=== PATIENT | female | born 1955 | race Hispanic/Latino ===

== ENCOUNTER 2020-10-13 09:39 | Emergency (ER) | payer MEDICARE ==
[2020-10-13] MEDS ORDERED: KETOROLAC TROMETHAMINE 60 MG/2 ML VIAL ONE (09:52)
== END 2020-10-13 10:33 | disposition home or self-care (01) ==
LOC: EDH 09:39
DX: S86.911A Strain of unspecified muscle(s) and tendon(s) at lower leg level, right leg, initial encounter (principal); X58.XXXA Exposure to other specified factors, initial encounter; Y93.89 Activity, other specified; Y92.89 Other specified places as the place of occurrence of the external cause; Y99.8 Other external cause status
CPT/HCPCS: 73562; 96372; 99283; J1885

== ENCOUNTER 2020-11-04 11:25 | Emergency (ER) | payer MEDICARE ==
[2020-11-04] MEDS ORDERED: DEXAMETHASONE SOD PHOSPHATE 10MG/ML 1ML VIAL ONE (12:48)
[2020-11-04] MEDS ORDERED: KETOROLAC TROMETHAMINE 30MG/ML ONE (12:49)
[2020-11-04] MEDS ORDERED: ORPHENADRINE CITRATE 30 MG/ML ML ONE (12:49)
[2020-11-04] MEDS ORDERED: IBUPROFEN 600 MG TABLET ONE (12:55)
[2020-11-04] MEDS ORDERED: CYCLOBENZAPRINE HCL 10 MG TABLET ONE (12:55)
== END 2020-11-04 13:39 | disposition home or self-care (01) ==
LOC: EDH 11:25
DX: S80.01XA Contusion of right knee, initial encounter (principal); W18.39XA Other fall on same level, initial encounter; Y93.89 Activity, other specified; Y92.89 Other specified places as the place of occurrence of the external cause; Y99.8 Other external cause status
CPT/HCPCS: 73562; 96372 ×3; 99284; J1100; J1885; J2360

== ENCOUNTER 2022-07-28 11:40 | Emergency (ER) | payer MEDICARE, OTHER ==
[~2022-07-28] VITALS: Ht 149.9 cm; Wt 82.1 kg
[2022-07-28 11:41] VITALS: BP 143/67
== END 2022-07-28 13:04 | disposition home or self-care (01) ==
LOC: EDH 11:40
DX: B34.9 Viral infection, unspecified (principal); Z20.822 Contact with and (suspected) exposure to COVID-19
CPT/HCPCS: 99284; 71045; 87635; 87880; 87804 ×2; C9803

== ENCOUNTER 2023-02-05 18:15 | Emergency (ER) | payer OTHER ==
[~2023-02-05] VITALS: Ht 154.9 cm; Wt 81.6 kg
[2023-02-05 18:30] VITALS: BP 133/79
[2023-02-05 18:54] LABS: BASOPHILS % (AUTO) 0.2 % (0.0-5.0); EOSINOPHILS % (AUTO) 0.2 % (0.0-8.0); HEMATOCRIT 43.4 % (36-48); MEAN CORPUSCULAR HEMOGLOBIN 29.4 pg (27.0-33.0); MEAN CORPUSCULAR HGB CONC 32.9 g/dL (32.0-36.0); MEAN CORPUSCULAR VOLUME 89.1 fL (79-99); NEUTROPHILS % (AUTO) 89.2 % (40.0-77.0); PLATELET COUNT (AUTO) 277 K/uL (130-400); RED BLOOD CELL COUNT(AUTO) 4.87 MIL/uL (4.00-5.50); RED CELL DISTRIBUTION WIDTH 13.2 % (11.0-15.5); WHITE BLOOD COUNT (AUTO) 9.7 K/uL (4.8-10.8)
[2023-02-05 19:06] LABS: CREATININE 0.6 mg/dL (0.5-1.5)
[2023-02-05 19:10] LABS: ALBUMIN 3.6 g/dL (3.5-5.0); TOTAL PROTEIN, SERUM 7.5 g/dL (6.0-8.3)
== END 2023-02-05 22:17 | disposition left against medical advice (07) ==
LOC: EDH 18:15
DX: R11.2 Nausea with vomiting, unspecified (principal); R19.7 Diarrhea, unspecified
CPT/HCPCS: 36415; 80053; 83690; 85025

== ENCOUNTER 2023-04-03 19:21 | Emergency (ER) | payer OTHER ==
[~2023-04-03] VITALS: Ht 157.5 cm; Wt 84.8 kg
[2023-04-03] MEDS ORDERED: 0.9%NACL 1000ML 1,000 ML IV ONE (21:30)
[2023-04-03] MEDS ORDERED: KETOROLAC 15MG/ML VIAL (15MG/ML) IV ONE (21:30)
[2023-04-03 22:07] LABS: BASOPHILS % (AUTO) 0.5 % (0.0-5.0); EOSINOPHILS % (AUTO) 1.1 % (0.0-8.0); HEMATOCRIT 44.1 % (36-48); LYMPHOCYTES % (AUTO) 31.4 % (21.0-51.0); MEAN CORPUSCULAR HEMOGLOBIN 29.3 pg (27.0-33.0); MEAN CORPUSCULAR HGB CONC 32.4 g/dL (32.0-36.0); MEAN CORPUSCULAR VOLUME 90.4 fL (79-99); MONOCYTES % (AUTO) 6.9 % (3.0-13.0); NEUTROPHILS % (AUTO) 59.8 % (40.0-77.0); PLATELET COUNT (AUTO) 302 K/uL (130-400); RED BLOOD CELL COUNT(AUTO) 4.88 MIL/uL (4.00-5.50); RED CELL DISTRIBUTION WIDTH 13.5 % (11.0-15.5); WHITE BLOOD COUNT (AUTO) 8.8 K/uL (4.8-10.8)
[2023-04-03 23:09] LABS: APPEARANCE,URINE CLEAR (CLEAR); BILIRUBIN,URINE NEGATIVE (NEGATIVE); COLOR,URINE LIGHT-YELLOW (YELLOW); GLUCOSE, URINE (UA) NEGATIVE (NEGATIVE); KETONES,URINE NEGATIVE (NEGATIVE); LEUKOCYTE ESTERASE ,URINE 25 Leu/uL (NEGATIVE); NITRATE,URINE NEGATIVE (NEGATIVE); OCCULT BLOOD,URINE NEGATIVE (NEGATIVE); PH,URINE 5.5 (5.0-8.0); PROTEIN,URINE NEGATIVE (NEGATIVE); UROBILINOGEN,URINE 0.2 mg/dL (0.2-1.0)
[2023-04-03 23:12] LABS: MUCUS,URINE RARE LPF (None Seen); SQUAMOUS EPITHELIAL CELL,UR RARE /HPF (0-2)
[2023-04-03 23:16] LABS: CREATININE 0.6 mg/dL (0.5-1.5); POTASSIUM 3.8 mmol/L (3.5-5.1)
[2023-04-03 23:22] LABS: ALBUMIN 3.6 g/dL (3.5-5.0); TOTAL PROTEIN, SERUM 7.3 g/dL (6.0-8.3)
[2023-04-03] MEDS ORDERED: IOHEXOL 350 MG/ML 100ML INFUS..BTL IV ONE (23:23)
[2023-04-04] MEDS ORDERED: POLY17PO4 PO (00:33)
[2023-04-04 00:39] VITALS: BP 128/64
== END 2023-04-04 00:45 | disposition home or self-care (01) ==
LOC: EDH 19:21
DX: K59.00 Constipation, unspecified (principal); M54.50 Low back pain, unspecified
CPT/HCPCS: 99285; 74177; 96374; 96361; 80053; 83690; 85025; 87077; 87088; 87186; 83605; 81001; 36415; J7030; J1885; Q9967

== ENCOUNTER 2023-06-16 12:56 | Emergency (ER) | payer OTHER ==
[~2023-06-16] VITALS: Ht 154.9 cm; Wt 81.6 kg
[~2023-06-16 12:56] MED LIST: POLY17PO4 PO
[2023-06-16 16:05] LABS: SARS-CoV-2, RNA, NAAT POSITIVE SARS CoV-2 (NEGATIVE)
[2023-06-16 16:16] LABS: INFLUENZA TYPE A Negative For Type A (NEGATIVE); INFLUENZA TYPE B Negative For Type B (NEGATIVE)
[2023-06-16 16:20] LABS: RAPID GROUP A STREP NEGATIVE (NEGATIVE)
[2023-06-16] MEDS ORDERED: GUAIFENESIN 600 MG TABLET.ER PO ONE ×2 (17:30→17:36)
[2023-06-16] MEDS ORDERED: KETOROLAC 60 MG VIAL (30MG/ML) IM ONE (17:30)
[2023-06-16] MEDS ORDERED: NIRM1TAB5 PO (17:33)
[2023-06-16] MEDS ORDERED: GUAI600T50 PO (17:33)
[2023-06-16] MEDS ORDERED: KETOROLAC 30MG VIAL (30MG/ML) ONE (17:35)
[2023-06-16 17:39] VITALS: BP 166/75; PULSE 69; RESP 16; O2SAT 100
== END 2023-06-16 17:59 | disposition home or self-care (01) ==
LOC: EDH 12:56
DX: U07.1 COVID-19 (principal); B34.9 Viral infection, unspecified; J02.9 Acute pharyngitis, unspecified
CPT/HCPCS: 99284; 71045; 87635; 87880; 87804 ×2; 96372; C9803; J1885

== ENCOUNTER 2025-06-04 17:10 | Emergency (ER) | payer OTHER ==
[~2025-06-04] VITALS: Ht 154.9 cm; Wt 88.5 kg
[~2025-06-04 17:10] MED LIST changes: +GUAI600T50 PO; +NIRM1TAB5 PO
[2025-06-04] MEDS ORDERED: AMOX1TAB16 PO (17:42)
--- NOTE | 2025-06-04 17:43 | ERN ---
ED Note History of Present Illness Stated Complaint: EAR ACHE Chief Complaint: Earache Time Seen by MD: 17:11 Time Seen by Midlevel: 17:11 Dictation: The patient is a 70-year-old female with no past medical history who presents to the emergency department with complaints of right ear pain onset2 hours prior to arrival. Patient denies any trauma. Reports she had some swelling behind her ear but it has gone down. Patient denies any fevers. Allergies: Coded Allergies: No Known Allergies (Unverified Allergy, Unknown, 07/28/22) Home Meds Active Scripts Nirmatrelvir/Ritonavir (Paxlovid 150-100 mg Pack (Eua)) 1 Each Tablet, 1 EACH PO BID for 5 Days, #10 TAB 0 Refills Prov:BJ RAMSEY CUSTOMER CARE VOICE CONSULTANT 06/16/23 Guaifenesin (Mucinex) 600 Mg Tablet.er, 600 MG PO BID for 7 Days, #14 TAB 0 Refills Prov:BJ RAMSEY NP 06/16/23 Polyethylene Glycol 3350 (Miralax) 17 Gm Powd.pack, 17 GM PO DAILY for constipation for 30 Days, #1 BOX Prov:ANNE MARIE MEDINA CUSTOMER CARE VOICE CONSULTANT 04/04/23 Past Medical History Past Medical History: No Pertinent History Surgical History: None Social History: Smokers, Lives with family History: Not Applicable RN Note Reviewed/Agreed w/PFSH: Yes Review of System Dictation Constitutional: Negative for fever,chills, and weight loss Eyes: Negative for injury, pain,redness, and discharge ENT: Positive for right ear pain Cardiovascular: Negative for chest pain, palpitations, and edema Respiratory: Negative for shortness of breath, cough, and wheezing, Abdomen/GI: Negative for abdominal pain, nausea, vomiting, diarrhea, and constipation Back: Negative for injury and pain : Negative for injury, bleeding and discharge MS/Extremity: Negative for injury and deformity Skin: Negative for rash, and discoloration Neuro: Negative for headache, weakness, numbness, tingling, and seizure Psych: Negative for suicide ideation, homicidal ideation, and hallucinations Initial Vital Sign VS Vital Signs Date Time Temp Pulse Resp B/P (MAP) Pulse Ox O2 Delivery O2 Flow Rate FiO2 06/04/25 17:11 97.5 64 19 141/79 99 Room Air 0 Physical Exam Dictation Vital Signs reviewed General Appearance: Alert, oriented x 3, no acute distress, well developed, nourished. Head and Face: non-traumatic. Eyes: PERRL, pink conjunctivas, eyelid no trauma, anterior chamber with arcus senilis. Ears: Pinnas intact and no signs of trauma or erythema ear canals clear and no discharge, right TM positive erythema Nose: No discharge, no bleeding. Oropharynx: Mouth normal, tongue pink. pharynx clear,no erythema, tonsils no exudates, no abscesses noted, mucous membrane moist Neck: Supple, non-tender, no thyromegaly, no masses, no JVD, no bruits Breast:Deferred Chest:No tenderness, no crepitus, no paradoxical movement, no retractions Lungs:Clear, well-ventilated, symmetric, no rales, no wheezing, no rhonchi, no stridor, good breath sounds bilaterally Heart: Regular rate, regular rhythm, no murmur, no gallops Vascular: no peripheral edema, Abdomen: Soft, positive bowel sounds, nondistended, no guarding, nontender, no rebound, no masses no hepatomegaly, no splenomegaly, no Alexandra's sign, no hernias. Rectal: Deferred Genital: Deferred Neurological: Normal speech, motor function intact, sensory function intact Musculoskeletal: Neck nontender, full range of motion, back nontender, full range of motion, Extremities: nontender, full range of motion Skin: Color pink, dry, no turgor, no rash, no lacerations, no abrasions, no contusions. Lymphatic: Deferred Results (Laboratory/Radiology) Labs Reviewed?: Yes ED Course ED Course Orders Procedure Category Date Status Time Ketorolac 60mg/2ml PHA 06/04/25 Logged (Toradol 60mg/2ml) 18:00 Current Medications Medications (Trade) Dose Ordered Sig/Prince Route PRN Reason Start Time Stop Time Status Last Admin Dose Admin Ketorolac Tromethamine (toRADol 60MG/ 2ML) 30 mg ONCE ONCE IM 06/04/25 18:00 06/04/25 18:01 UNV Vital Signs Date Time Temp Pulse Resp B/P (MAP) Pulse Ox O2 Delivery O2 Flow Rate FiO2 06/04/25 17:11 97.5 64 19 141/79 99 Room Air 0 Medical Decision Making MDM The patient is a 70-year-old female with no past medical history who presents to the emergency department with complaints of right ear pain onset2 hours prior to arrival. Patient denies any trauma. Denies any cough or runny nose. Reports she had some swelling behind her ear but it has gone down. Patient denies any fevers. Patient with a erythemic tympanic membrane. He will treat patient with the antibiotics. On physical exam patient is in no acute distress stable vital signs. Differential diagnosis: Otitis media, otitis externa, URI Need for hospitalization: Patient does not meet criteria for hospitalization. There are no social concerns with this patient. DX & DISP Disposition: Discharge Departure Impression: Primary Impression: Right otitis media Condition: Stable Scripts Amoxicillin/Potassium Clav (Amox Tr-K Clv 875-125 mg Tab) 875 Mg-125 Mg Tablet 1 EACH PO BID for 5 Days, #10 TAB 0 Refills Prov: QUETA MEYERS 06/04/25 Additional Instructions: Please take your medications as prescribed. Follow up with the primary doctor in 1-2 days. If anything worsens please return to ER. FOLLOW-UP WITH PRIMARY CARE PROVIDER IN 1 TO 2 DAYS. TAKE MEDICATIONS DIRECTED HERE IN THE EMERGENCY ROOM. OKAY TO CONTINUE HOME MEDICATIONS UNLESS OTHERWISE DISCUSSED DURING YOUR VISIT IN THE EMERGENCY ROOM TODAY. RETURN TO YOUR NEAREST EMERGENCY ROOM IF SYMPTOMS WORSEN OR IF THERE IS NO IMPROVEMENT. CALL 911 IF YOU NEED IMMEDIATE ASSISTANCE. TAKE TYLENOL [id number] NEEDED AND IF NO CONTRAINDICATIONS ARE PRESENT. INCREASE ORAL HYDRATION. A WOUND CULTURE OR URINE CULTURE WAS ORDERED HERE IN THE EMERGENCY ROOM DEPARTMENT PLEASE FOLLOW-UP WITH PRIMARY CARE PROVIDER AND ADVISE THEM TO GET REPEAT PORTS FROM OUR FACILITY. IF YOU HAD ANY ANNABELLE WRAP/SPLINTS THAT WERE APPLIED HERE, PLEASE DO NOT REMOVE THEM UNTIL YOU SEE YOUR PRIMARY CARE OR SPECIALTY. Referrals: RITCHIE BELTRAN M.D. (PCP) Time of Disposition: 17:41 I have reviewed the case, and I agree with, Diagnosis and Plan QUETA MEYRES Jun 04, 2025 17:43
[2025-06-04 17:48] VITALS: BP 141/79; PULSE 71; RESP 18; TEMP 97.7; O2SAT 99
== END 2025-06-04 18:00 | disposition home or self-care (01) ==
LOC: EDH 17:10
DX: H66.91 Otitis media, unspecified, right ear (principal); F17.200 Nicotine dependence, unspecified, uncomplicated; Z79.899 Other long term (current) drug therapy
CPT/HCPCS: 99283; 96372; J1885

== ENCOUNTER 2025-10-10 11:28 | Emergency (ER) | payer OTHER ==
[~2025-10-10] VITALS: Ht 154.9 cm; Wt 93.0 kg
[~2025-10-10 11:28] MED LIST changes: +AMOX1TAB16 PO
[2025-10-10 12:09] LABS: SARS-CoV-2, RNA, NAAT NEGATIVE SARS CoV-2 (NEGATIVE)
[2025-10-10 12:15] LABS: INFLUENZA TYPE A Negative For Type A (NEGATIVE); INFLUENZA TYPE B Negative For Type B (NEGATIVE)
[2025-10-10 12:18] LABS: RAPID GROUP A STREP positive (NEGATIVE)
--- NOTE | 2025-10-10 12:35 | EKG ---
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
[2025-10-10 12:36] LABS: IMMATURE GRANULOCYTE ABSOLUTE 0.04 K/uL (0-1); NUCLEATED RED BLOOD CELLS 0.0 % (0.0-0.19); PLATELET COUNT (AUTO) 259 K/uL (130-400); RED BLOOD CELL COUNT(AUTO) 4.81 MIL/uL (4.00-5.50); RED CELL DISTRIBUTION WIDTH 13.2 % (11.0-15.5); WHITE BLOOD COUNT (AUTO) 12.5 K/uL (4.8-10.8)
[2025-10-10 12:44] LABS: CREATININE 0.7 mg/dL (0.5-1.0); GLOMERULAR FILTR. RATE CALC 92.0 mL/min (>90); GLUCOSE,RANDOM 108.0 mg/dL (70-105); SODIUM SERUM 138.0 mmol/L (136-145); UREA NITROGEN, BLOOD 18.0 mg/dL (7-18)
[2025-10-10] MEDS ORDERED: AZIT250T9 PO (13:13)
[2025-10-10] MEDS ORDERED: PRED20TA3 PO (13:13)
--- NOTE | 2025-10-10 13:14 | ERN ---
ED Note History of Present Illness Stated Complaint: FLU SYMPTOMS Chief Complaint: Flu Symptoms Time Seen by MD: 11:32 Dictation: 70-year-old female presenting to the emergency department with sore throat cough cold congestion over the past few days, no significant past medical history. Patient denies any shortness of breath or chest pain Allergies: Coded Allergies: No Known Allergies (Unverified Allergy, Unknown, 07/28/22) Home Meds Active Scripts Amoxicillin/Potassium Clav (Amox Tr-K Clv 875-125 mg Tab) 875 Mg-125 Mg Tablet, 1 EACH PO BID for 5 Days, #10 TAB 0 Refills Prov:[facility] 06/04/25 Nirmatrelvir/Ritonavir (Paxlovid 150-100 mg Pack (Eua)) 1 Each Tablet, 1 EACH PO BID for 5 Days, #10 TAB 0 Refills Prov:BJ RAMSEY [facility] 06/16/23 Guaifenesin (Mucinex) 600 Mg Tablet.er, 600 MG PO BID for 7 Days, #14 TAB 0 Refills Prov:BJ RAMSEY [facility] 06/16/23 Polyethylene Glycol 3350 (Miralax) 17 Gm Powd.pack, 17 GM PO DAILY for constipation for 30 Days, #1 BOX Prov:ANNE MARIE MEDINA [employer] BACK TENDER 04/04/23 Past Medical History Past Medical History: No Pertinent History Surgical History: None Social History: Smokers, Lives with family History: Not Applicable Review of System Dictation Constitutional: Negative for fever,chills, and weight loss Eyes: Negative for injury, pain,redness, and discharge ENT: Per HPI Cardiovascular: Negative for chest pain, palpitations, and edema Respiratory: Negative for shortness of breath, positive for cough Abdomen/GI: Negative for abdominal pain, nausea, vomiting, diarrhea, and constipation Back: Negative for injury and pain : Negative for injury, bleeding and discharge MS/Extremity: Negative for injury and deformity Skin: Negative for rash, and discoloration Neuro: Negative for headache, weakness, numbness, tingling, and seizure Psych: Negative for suicide ideation, homicidal ideation, and hallucinations Initial Vital Sign VS Vital Signs Date Time Temp Pulse Resp B/P (MAP) Pulse Ox O2 Delivery O2 Flow Rate FiO2 10/10/25 11:29 97.9 98 18 146/84 97 Room Air Physical Exam Dictation General: awake, alert, NAD Head/Face: Normocephalic, atraumatic Eyes: PERRL, EOMI, vision at baseline ENT: oral cavity clear, TMs clear, no signs of infection Neck: Trachea midline, supple, no nuchal rigidity Cardiovascular: RRR, normal S1/S2, No MRGs, no JVD Respiratory: CTAB, no respiratory distress, No rales or wheezes Abdomen: Soft, non-tender, non-distended, normal bowel sounds, no guarding or rebound. Skin: Warm, dry, normal turgor, no rash MS/Extremity: Pulses equal, no cyanosis, neurovascular intact, FROM Neuro: COAx4, GCS 15, strength 5/5, CN 2-12 intact, normal cerebellar exam, normal gait, Psych: Normal behavior, mood, and affect normal Results (Laboratory/Radiology) Laboratory/Radiology Laboratory Tests Test 10/10/25 11:30 10/10/25 12:20 Influenza Type A Antigen Negative For Type A Influenza Type B Antigen Negative For Type B SARS-CoV-2, RNA, NAAT NEGATIVE SARS CoV-2 Group A Streptococcus Rapid positive (NEGATIVE) *A White Blood Count 12.5 K/uL (4.8-10.8) H Red Blood Count 4.81 MIL/uL (4.00-5.50) Hemoglobin 14.1 g/dL (12.0-16.0) Hematocrit 44.0 % (36-48) Mean Corpuscular Volume 91.5 fL (79-99) Mean Corpuscular Hemoglobin 29.3 pg (27.0-33.0) Mean Corpuscular Hemoglobin Concent 32.0 g/dL (32.0-36.0) Red Cell Distribution Width 13.2 % (11.0-15.5) Platelet Count 259 K/uL (130-400) Mean Platelet Volume 9.6 fL (7.5-10.5) Immature Granulocyte % (Auto) 0.3 % (0-1) Neutrophils (%) (Auto) 84.5 % (40.0-77.0) H Lymphocytes (%) (Auto) 8.1 % (21.0-51.0) L Monocytes (%) (Auto) 5.5 % (3.0-13.0) Eosinophils (%) (Auto) 1.3 % (0.0-8.0) Basophils (%) (Auto) 0.3 % (0.0-5.0) Neutrophils # (Auto) 10.6 K/uL (1.8-7.7) H Lymphocytes # (Auto) 1.0 K/uL (1.0-4.8) Monocytes # (Auto) 0.7 K/uL (0.1-1.0) Eosinophils # (Auto) 0.16 K/uL (0.00-0.70) Basophils # (Auto) 0.04 K/uL (0.00-0.20) Absolute Immature Granulocyte (auto 0.04 K/uL (0-1) Nucleated Red Blood Cells 0.0 % (0.0-0.19) White Cell Morphology Comment See comments Sodium Level 138 mmol/L (136-145) Potassium Level 4.5 mmol/L (3.5-5.1) Chloride Level 106 mmol/L (101-111) Carbon Dioxide Level 29 mmol/L (21-32) Blood Urea Nitrogen 18 mg/dL (7-18) Creatinine 0.7 mg/dL (0.5-1.0) Glomerular Filtration Rate Calc 92 mL/min (>90) Random Glucose 108 mg/dL (70-105) H Total Calcium 8.6 mg/dL (8.5-10.1) Troponin I High Sensitivity 5 ng/L (4-50) Labs Reviewed?: Yes EKG: (+) NSR, (+) rhythm, (+) nonspecific ST T wave chg, (+) unchanged X-RAY Comment: No acute infiltrates noted ED Course ED Course Orders Procedure Category Date Status Time Influenza Type A & B, LAB 10/10/25 Complete Rapid 11:34 Covid Rna Naat LAB 10/10/25 Complete 11:34 Rapid (Group A Strep) LAB 10/10/25 Complete 11:34 Basic Metabolic Panel LAB 10/10/25 Complete 12:03 Cbc With Differential LAB 10/10/25 Complete 12:03 12 Lead Ekg Tracing- EKG 10/10/25 Complete Technical 12:03 Troponin I High LAB 10/10/25 Complete Sensitivity 12:03 Chest 1vw RAD 10/10/25 Taken 12:03 Ceftriaxone 1g Vial PHA 10/10/25 Complete (Rocephine 1g Inj) 12:24 Current Medications Medications (Trade) Dose Ordered Sig/Prince Route PRN Reason Start Time Stop Time Status Last Admin Dose Admin Ceftriaxone Sodium (ROCEphine 1G INJ) 1 gm ONCE STAT IM 10/10/25 12:24 10/10/25 12:25 DC Vital Signs Date Time Temp Pulse Resp B/P (MAP) Pulse Ox O2 Delivery O2 Flow Rate FiO2 10/10/25 11:29 97.9 98 18 146/84 97 Room Air Medical Decision Making MDM MDM: Differential diagnosis: Rationale: Tests considered and ordered secondary to shared decision making include: Previous outside records reviewed: Old ER visits. Risk of complication and/or morbidity or mortality of patient management: None Medications-Per medication reconciliation Need for hospitalization: Patient does not meet criteria for hospitalization. Need for emergency major/minor surgery: No There are no social concerns with this patient. Prescription drug management Prescriptions will include symptomatic care Patient's prior external medical records from other ER visits were reviewed by me as indicated. Prior testing and results from previous visits were reviewed. Prior tests were taken into account with medical decision making and resource utilization, independent historian/historians were used to obtain complete medical history. I independently interpreted the test that were performed, results were reviewed by me and considered findings on radiology if ordered. Medical management and examination interpretation discussions were had by me with other qualified healthcare professionals as indicated for the patient's care. 70-year-old female with strep throat, stable exam nontoxic afebrile, clear chest x-ray labs stable, given Rocephin IM and stable for discharge prescriptions given. No respiratory distress. DX & DISP Disposition: Discharge Departure Impression: Primary Impression: Acute pharyngitis Condition: Stable Scripts Prednisone (Prednisone) 20 Mg Tablet 20 MG PO DAILY for 5 Days, #5 TAB Prov: KELLY RODRÍGUEZ MD 10/10/25 Azithromycin (Azithromycin) 250 Mg Tablet 250 MG PO AD for cough for 5 Days, #6 TAB Prov: KELLY RODRÍGUEZ MD 10/10/25 Referrals: RITCHIE BELTRAN M.D. (PCP) KELLY RODRÍGUEZ MD Oct 10, 2025 13:14
[2025-10-10 13:53] VITALS: BP 140/94; PULSE 94; RESP 20; TEMP 99; O2SAT 98
--- NOTE | 2025-10-10 13:58 | HMCIMG ---
EXAM: CR Chest, 1 View. CLINICAL HISTORY: cough COMPARISON: None provided. FINDINGS: LUNGS: The lungs show no infiltrate or other acute finding. PLEURAL SPACES: No pleural effusion or pneumothorax. MEDIASTINUM: The cardiomediastinal silhouette is within normal limits. BONES: No aggressive appearing osseous lesion seen. IMPRESSION: No acute cardiopulmonary pathology is evident. /[place]
== END 2025-10-10 14:03 | disposition home or self-care (01) ==
LOC: EDH 11:28
DX: J02.0 Streptococcal pharyngitis (principal); F17.200 Nicotine dependence, unspecified, uncomplicated; Z20.822 Contact with and (suspected) exposure to COVID-19; Z79.899 Other long term (current) drug therapy
CPT/HCPCS: 99285; 71045; 87635; 84484; 80048; 85025; 87880; 87804 ×2; 36415; 96372; 93005; J0696